=== PATIENT | male | born 1965 | race Caucasian/White ===

== ENCOUNTER 2017-03-22 17:57 | Emergency (ER) | payer MEDICARE, MEDICAID ==
--- NOTE | 2017-03-26 19:04 | ER ---
ADMIT: 03/22/2017 RM/LOC: ER [facility] MR#: [id number] [id number] [place], [place] [id number] JUSTYN PUGH [address] [address] Emergency Room Report SEX: M AGE: 52 : 1965 DATE: 03/22/2017 CHIEF COMPLAINT: Trach feels clogged. HISTORY OF PRESENT ILLNESS: A 52-year-old, white male, who presents with some trach difficulty. He states he has been battling a "lung infection" for the last week. He has had some thick exudates from his trach. They are now clogging up his tracheostomy tube. He is having a hard time breathing. He is currently being treated for this infection with an antibiotic he takes three times a day. However, he is not sure what medication this is. He also takes what sounds like Mucinex and some Tessalon Perles for this. He is seen by Dr. Crawford, ENT in [place], [place]. He called his office today stating that he is having difficulty with trach. He told him to present to the ER for further evaluation and management. He states he is suctioning three times a day at this time. He is not getting much for return. Denies any fever, chills, chest pain. He states he has somewhat of a productive cough for the past week; however, not bringing much up with this. Primarily concerned about the shortness of breath today. He does have an appointment to see his ENT on Saturday to have this tube replaced in [place]. PAST MEDICAL HISTORY: Hypertension, COPD, and epilepsy. COURSE IN THE EMERGENCY ROOM: GENERAL: The patient was seen and examined. Afebrile, nontoxic. No acute distress. He is initially 100% on room air, mildly tachypneic. He is in no acute distress. HEENT: Eyes normal inspection. Pharynx not erythematous. NECK: He does have a tracheostomy tube placed. There are thick brown exudates about the tube entrance. LUNGS: He is in no respiratory distress. He does have some wheezes and rales. He is actively smoking prior to bring back to the department tonight. HEART: Regular. No murmurs, gallops, or rubs. SKIN: Warm and dry. Non-diaphoretic. EXTREMITIES: Nontender. No pedal edema. I did initially call Respiratory Therapy to bedside to try some suctioning. They were unable to pass a tube secondary to the secretions. I did then have Dr. Muñoz evaluate the patient. I did do some light cleaning, some saline flushes, and we were able to pass a 10 and then a 14 suction tube, states he is feeling better at this time, comfortable going home. To follow up with his ENT on Saturday. IMPRESSION: ADMIT: 03/22/2017 RM/LOC: [facility] [place] MR#: [id number] [address] [place] [id number] JUSTYN PUGH [facility] [place] [address] Emergency Room Report SEX: M AGE: 52 : 1965 1. Shortness of breath. 2. Tracheostomy tube. DISPOSITION: The patient was discharged home. I did encourage him to increase his fluids as tolerated. The guaifenesin can cause some thickening of the secretions without adequate fluid intake. Continue all of his home medications. Return with any worsening signs or symptoms. Continue his appointment with ENT on Saturday as scheduled. I did recommend he continue suction six times per day until he is able to get this tube replaced. Return with any worsening shortness of breath, difficulty breathing. Questions sought and answered to the best of my ability and to the patient's satisfaction. He was discharged home in stable condition. GEORGIANA Mathias / Joseph Muñoz MD / feliz JOB #: [id number] CC: Stefan Rodriguez MD, Attending Physician Tani Flores DO, Family Physician
== END 2017-03-22 20:30 | disposition home or self-care (01) ==
LOC: ER 17:57
DX: R06.02 Shortness of breath (principal); Z93.0 Tracheostomy status; I10 Essential (primary) hypertension; J44.9 Chronic obstructive pulmonary disease, unspecified; G40.909 Epilepsy, unspecified, not intractable, without status epilepticus